=== PATIENT | female | born 1990 | race Caucasian/White ===

== ENCOUNTER 2023-06-12 14:43 | Emergency (ER) | payer MEDICAID ==
[~2023-06-12] VITALS: Ht 162.6 cm; Wt 113.4 kg
[2023-06-12 14:50] VITALS: BP_SYST 113; PULSE 84; RESP 17; TEMP 97.7; O2SAT 98
[2023-06-12 15:39] LABS: BILIRUBIN,URINE NEGATIVE (NEGATIVE); COLOR,URINE YELLOW (YELLOW); GLUCOSE,URINE NEGATIVE (NEGATIVE); KETONES,URINE NEGATIVE (NEGATIVE); LEUKOCYTE ESTERASE ,URINE 2+ (NEGATIVE); NITRITE, URINE NEGATIVE (NEGATIVE); PROTEIN URINE NEGATIVE (NEGATIVE); UROBILINOGEN,URINE 0.2 (0.2-1.0)
[2023-06-12 15:43] LABS: BLOOD, URINE TRACE (NEGATIVE); CLARITY/URINE SLIGHTLY HAZY (CLEAR)
[2023-06-12 15:55] LABS: BACTERIA,URINE MODERATE /HPF (None Seen)
[2023-06-12 15:56] LABS: HCG,QUAL RESULT NEGATIVE (NEGATIVE)
[2023-06-12] MEDS ORDERED: cefTRIAXone 1 GM VIAL IM ONE (16:00)
[2023-06-12] MEDS ORDERED: PHEN-801 PO (16:33)
[2023-06-12] MEDS ORDERED: IBUP-1971 PO (16:33)
[2023-06-12] MEDS ORDERED: SULF1TAB48 PO (16:33)
[2023-06-12] MEDS ORDERED: LIDOCAINE 1%, 20 ML MDV 20 ML ONE (16:38)
[2023-06-12 16:45] VITALS: BP_SYST 113; PULSE 84; RESP 17; TEMP 97.7; O2SAT 98
[2023-06-12] MEDS ORDERED: LIDOCAINE 1% 10 MG/ML, 20 ML MDV INJ ONE (16:45)
== END 2023-06-12 16:45 | disposition home or self-care (01) ==
LOC: SED 14:43
DX: N39.0 Urinary tract infection, site not specified (principal); R30.0 Dysuria; Z79.899 Other long term (current) drug therapy
CPT/HCPCS: 99283; 84703; 96372; 81003; 81000; J0696; J2001

== ENCOUNTER 2023-06-20 11:32 | Emergency (ER) | payer MEDICAID ==
[~2023-06-20] VITALS: Ht 162.6 cm; Wt 111.1 kg
[~2023-06-20 11:32] MED LIST: IBUP-1971 PO; PHEN-801 PO; SULF1TAB48 PO
[2023-06-20 11:37] VITALS: BP_SYST 117; PULSE 66; RESP 20; TEMP 98.3; O2SAT 98
[2023-06-20 12:36] LABS: BILIRUBIN,URINE NEGATIVE (NEGATIVE); CLARITY/URINE Clear (CLEAR); COLOR,URINE YELLOW (YELLOW); GLUCOSE,URINE NEGATIVE (NEGATIVE); KETONES,URINE NEGATIVE (NEGATIVE); NITRITE, URINE NEGATIVE (NEGATIVE); PROTEIN URINE NEGATIVE (NEGATIVE); UROBILINOGEN,URINE 0.2 (0.2-1.0)
[2023-06-20 12:49] LABS: BLOOD, URINE TRACE (NEGATIVE)
[2023-06-20 12:50] LABS: LEUKOCYTE ESTERASE ,URINE TRACE (NEGATIVE)
[2023-06-20 12:53] LABS: BACTERIA,URINE RARE /HPF (None Seen); RBC,URINE 0-3 /HPF (0-3); WBC,URINE 0-3 /HPF (0-3)
[2023-06-20] MEDS ORDERED: CIPR500T5 PO (14:38)
[2023-06-20 15:13] VITALS: BP_SYST 117; PULSE 66; RESP 20; TEMP 98.3; O2SAT 98
== END 2023-06-20 15:18 | disposition home or self-care (01) ==
LOC: SED 11:32
DX: N39.0 Urinary tract infection, site not specified (principal); R35.0 Frequency of micturition; R30.0 Dysuria; R10.30 Lower abdominal pain, unspecified; Z79.899 Other long term (current) drug therapy
CPT/HCPCS: 81000; 81025; 87086; 99283

== ENCOUNTER 2023-11-10 06:35 | Emergency (ER) | payer MEDICAID, OTHER ==
[~2023-11-10] VITALS: Ht 172.7 cm; Wt 108.9 kg
[~2023-11-10 06:35] MED LIST changes: +CIPR500T5 PO
[2023-11-10 07:00] VITALS: BP_SYST 117; PULSE 111; RESP 19; TEMP 98.2; O2SAT 97
[2023-11-10 07:48] LABS: BASOPHILS # (AUTO) 0.1 K/uL (0.0-0.2); BASOPHILS % (AUTO) 0.6 % (0.0-2.0); EOSINOPHILS # (AUTO) 0.1 K/uL (0.0-0.4); EOSINOPHILS % (AUTO) 0.8 % (0.0-4.0); HEMATOCRIT 39.3 % (36-48); HEMOGLOBIN 12.3 g/dL (12.0-16.0); LYMPHOCYTES # (AUTO) 1.1 K/uL (1.0-5.5); MEAN CORPUSCULAR HEMOGLOBIN 22 pg (27-31); MEAN CORPUSCULAR HGB CONC 31 % (32-36); MEAN CORPUSCULAR VOLUME 70 fL (79.0-98.0); MONOCYTES # (AUTO) 0.9 K/uL (0.0-1.0); MONOCYTES % (AUTO) 10.2 % (1.7-9.3); NEUTROPHILS # (AUTO) 6.5 K/uL (1.8-7.7); NEUTROPHILS % (AUTO) 75.4 % (40.0-70.0); PLATELET COUNT (AUTO) 265 K/uL (130-430); RED BLOOD CELL COUNT(AUTO) 5.65 MIL/uL (4.2-6.2); RED CELL DISTRIBUTION WIDTH 17.6 % (9.0-15.0); WHITE BLOOD COUNT (AUTO) 8.6 K/uL (4.8-10.8)
[2023-11-10 07:58] LABS: CALCIUM 8.8 mg/dL (8.4-11.0); CREATININE 0.95 mg/dL (0.55-1.30); POTASSIUM 3.7 mmol/L (3.5-5.1)
[2023-11-10 08:02] LABS: ALBUMIN 3.7 g/dL (3.4-4.8); BILIRUBIN,DIRECT 0.1 mg/dL (0.0-0.3); TOTAL BILIRUBIN 0.5 mg/dL (0.0-1.0); TOTAL PROTEIN, SERUM 7.4 g/dL (6.4-8.3)
[2023-11-10 08:16] LABS: BILIRUBIN,URINE NEGATIVE (NEGATIVE); COLOR,URINE YELLOW (YELLOW); GLUCOSE,URINE NEGATIVE (NEGATIVE); KETONES,URINE TRACE (NEGATIVE); LEUKOCYTE ESTERASE ,URINE 3+ (NEGATIVE); NITRITE, URINE NEGATIVE (NEGATIVE); PROTEIN URINE NEGATIVE (NEGATIVE)
[2023-11-10 08:23] LABS: BLOOD, URINE TRACE (NEGATIVE); CLARITY/URINE HAZY (CLEAR)
[2023-11-10 08:39] LABS: BACTERIA,URINE FEW /HPF (None Seen); WBC,URINE 20-50 /HPF (0-3)
[2023-11-10] MEDS ORDERED: NITR-85 PO (09:50)
== END 2023-11-10 10:01 | disposition home or self-care (01) ==
LOC: SED 06:35
DX: N39.0 Urinary tract infection, site not specified (principal); N89.8 Other specified noninflammatory disorders of vagina; J02.9 Acute pharyngitis, unspecified; R50.9 Fever, unspecified; Z79.899 Other long term (current) drug therapy
CPT/HCPCS: 36415; 76856; 80048; 80076; 81000; 81001; 81015; 81025; 83690; 85025; 87086; 99284